=== PATIENT | female | born 1980 | race African-American/Black ===

== ENCOUNTER → 2020-02-12 15:04 | Outpatient (CLI) | payer BC, SELFPAY ==
--- NOTE | ~2020-02-12 | US_ITS ---
EXAMINATION: US pelvic complete w TV DATE: 02/12/2020 15:55 INDICATION: Hypertrophy of the uterus TECHNIQUE: Multiple transabdominal and endovaginal sonographic images of the pelvis were obtained. COMPARISON: None. FINDINGS: The uterus measures 11.6 x 7.0 x 5.8 cm. Multiple uterine fibroids are noted. The largest i s an intramural fibroid in the left body of the uterus which measures 5.4 x 4.9 x 4.5 cm. The endomet rial complex measures 5 mm. The ovaries are not visualized however no adnexal abnormality is seen. Th ere is no free fluid in the pelvis. IMPRESSION: 1. Enlarged fibroid uterus. Reviewed, dictated and finalized at location A. [employer] IMPRESSION: 1. Enlarged fibroid uterus.
== END ==
PROVIDERS: PCP Family Medicine; Visit Provider Obstetrics & Gynecology
DX: N85.2 Hypertrophy of uterus (principal); D25.9 Leiomyoma of uterus, unspecified
CPT/HCPCS: 76830; 76856

== ENCOUNTER → 2020-09-14 13:28 | Outpatient (CLI) | payer BC, SELFPAY ==
--- NOTE | ~2020-09-14 | US_ITS ---
EXAMINATION: US pelvic complete w TV DATE: 09/14/2020 13:50 INDICATION: Uterine fibroid. TECHNIQUE: Multiple transabdominal and transvaginal sonographic images of the pelvis were obtained. COMPARISON: Ultrasound 02/12/2020 FINDINGS: TRANSABDOMINAL ULTRASOUND: The uterus measures 9.7 x 6.2 x 6.1 cm. There is no free fluid in the pelvis. TRANSVAGINAL ULTRASOUND: The endometrial complex measures 8 mm in thickness. The myometrium demonstrates heterogeneous echogen icity. There is a 4.8 cm hypoechoic intramural fibroid. The ovaries are not visualized. IMPRESSION: 1. 4.8 cm uterine fibroid, which was measured as 5.4 cm on 02/12/20. Reviewed, dictated and finalized at location A.
== END ==
PROVIDERS: Visit Provider Obstetrics & Gynecology
DX: D25.9 Leiomyoma of uterus, unspecified (principal)
CPT/HCPCS: 76830; 76856

== ENCOUNTER 2023-08-16 08:07 | Outpatient (CLI) | payer OTHER, SELFPAY ==
--- NOTE | ~2023-08-16 | US_ITS ---
EXAMINATION: US pelvic complete w TV DATE: 08/16/2023 08:58 INDICATION: Left pelvic pain. TECHNIQUE: Multiple transabdominal and transvaginal sonographic images of the pelvis were obtained. COMPARISON: Ultrasound 09/14/2020 FINDINGS: TRANSABDOMINAL ULTRASOUND: The uterus measures 10.1 x 7.0 x 7.9 cm. There is no free fluid in the pelvis. TRANSVAGINAL ULTRASOUND: The endometrial complex measures 6 mm in thickness. There is a 4.7 cm subserosal fibroid. There is a 3.2 cm submucosal fibroid. The ovaries are not visualized. IMPRESSION: 1. Uterine fibroids. 2. Ovaries not visualized. Reviewed, dictated and finalized at location A.
== END 2023-08-16 08:08 | disposition home or self-care (01) ==
LOC: ANHIMG 08:13
PROVIDERS: PCP Internal Medicine; Visit Provider Nurse Practitioner Obstetrics & Gynecology
DX: R10.2 Pelvic and perineal pain (principal); D25.9 Leiomyoma of uterus, unspecified
CPT/HCPCS: 76830; 76856